=== PATIENT | female | born 1950 | race Caucasian/White ===

== ENCOUNTER 2021-05-21 08:01 | Outpatient (REF) | payer MEDICARE, SELFPAY ==
[2021-05-21 08:45] LABS: Basophils Absolute Auto 0.1 X10*3/uL (0.0-0.2); Basophils Percent Auto 1.2 % (0-2); Eosinophils Absolute Auto 0.1 X10*3/uL (0.0-0.4); Eosinophils Percent Auto 1.8 % (0-4); Hemoglobin 14.9 g/dl (12.0-16.0); Imm Gran Abs Auto 0.03 X10*3/uL (0.00-0.03); Imm Gran Pct Auto 0.4 % (0.0-0.4); Lymphocytes Absolute Auto 1.6 X10*3/uL (1.2-4.9); Lymphocytes Percent Auto 20.4 % (20-40); MANUAL DIFF FLAG SCAN; Mean Corpuscular HGB Conc 32.4 g/dl (31.0-35.0); Mean Corpuscular Hemoglobin 28.3 pg (27.0-33.0); Mean Corpuscular Volume 87.5 fL (80.0-98.0); Mean Platelet Volume 11.7 fL (9.4-12.3); Monocytes Absolute Auto 0.6 X10*3/uL (0.1-1.2); Monocytes Percent Auto 7.2 % (2-11); Neutrophils Absolute Auto 5.3 x10*3/uL (2.0-8.3); PLT CLUMP 1; Red Blood Count 5.26 X10*6/uL (4.20-5.50); SCAN SMEAR FLAG 1
[2021-05-21 09:06] LABS: Alanine Aminotransferase 14 U/L (0-31); Albumin Level 4.1 g/dL (3.5-5.0); Alkaline Phosphatase 76 U/L (39-117); Anion Gap 13 (12-20); Aspartate Amino Transferase 18 U/L (5-31); Bilirubin Total 0.3 mg/dL (0.0-1.0); Blood Urea Nitrogen 16 mg/dL (9-16); Calcium 9.7 mg/dL (8.4-10.2); Carbon Dioxide 30 mmol/L (22-29); Chloride 102 mmol/L (96-108); Cholesterol 251 mg/dL; Estimated Glomerular Filt Rate > 60; Glucose Fasting 109 mg/dL (60-99); HDL Cholesterol 65 mg/dL; LDL Cholesterol Calculated 172 mg/dl; Potassium 4.4 mmol/L (3.3-5.1); Sodium 141 mmol/L (135-145); Triglycerides 73 mg/dL
[2021-05-21 09:13] LABS: Platelet Count 202 X10*3/uL (160-400); White Blood Count 7.6 X10*3/uL (4.8-10.8)
[2021-05-21 09:14] LABS: SLIDE REVIEW VERIFIED
== END 2021-05-21 08:02 | disposition home or self-care (01) ==
LOC: HO.LAB 08:01
PROVIDERS: PCP Nurse Practitioner Family; Visit Provider Nurse Practitioner Family
DX: E78.00 Pure hypercholesterolemia, unspecified (principal); I10 Essential (primary) hypertension
CPT/HCPCS: 36415; 80053; 80061; 85025

== ENCOUNTER 2021-06-10 07:18 | Outpatient (REF) | payer MEDICARE, SELFPAY ==
--- NOTE | ~2021-06-10 | MM_ITS ---
EXAMINATION: MM SCREENING DIGITAL BREAST TOMOSYNTHESIS, BILATERAL CLINICAL INFORMATION: Screening. Asymptomatic. No known family history of breast cancer. The lifetime risk of breast cancer based on the Tyrer-Cuzick Model is 4%. COMPARISON: None. TECHNIQUE: Digital breast tomosynthesis is performed in both the craniocaudal and mediolateral oblique views along with computer-aided detection (CAD). Synthesized 2D images are generated from the tomosynthesis. FINDINGS: There are scattered areas of fibroglandular density (ACR BI-RADS breast composition Category b). There are no significant masses, abnormal calcifications, or other abnormalities. The axilla and skin contours are unremarkable. MM/MM tomosynthesis screening BI IMPRESSION: No mammographic evidence of malignancy. ASSESSMENT: BI-RADS 1: Negative RECOMMENDATION: Routine annual mammography screening. This patient's information was entered into a reminder system with a target due date for their next mammogram.
== END 2021-06-10 07:19 | disposition home or self-care (01) ==
LOC: HO.MAMMO 07:18
PROVIDERS: PCP Nurse Practitioner Family; Visit Provider Nurse Practitioner Family
DX: Z12.31 Encounter for screening mammogram for malignant neoplasm of breast (principal)
CPT/HCPCS: 77063; 77067

== ENCOUNTER 2023-02-17 08:49 | Outpatient (AMB) | payer MEDICARE, SELFPAY ==
[2023-02-17 08:51] VITALS: BP 162/90; PULSE 82; O2SAT 95; BMI 28.5
--- NOTE | 2023-02-17 08:51 | MHC.PC.OV ---
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 Allergies pepper (genus Capsicum) Adverse Reaction (Intermediate, Verified 02/17/23 09:02) Vomiting Medication List - Last Reconciled 02/17/23 by YEFRI Barnes albuterol sulfate 90 mcg/actuation 2 puffs PO Q4H PRN fluticasone propion-salmeterol 500-50 mcg/dose (Wixela Inhub) 1 ea PO BID hydrochlorothiazide 12.5 mg PO DAILY Tobacco use date assessed: 02/17/23 Fall risk assessment: No Falls in past year Last assessed Fall Risk: 02/17/23 Dental Screening Dental Screen Date: 02/17/23 Did you have a dental visit in the last 12 months?: No Did you have a dental problem in the last 6 months where you did not have access to dental care?: No HPI 6 month f/u HPI Details Patient is a 72-year-old female who presents today to follow-up on asthma and hypertension. Patient reports compliance with medications and denies side effects. Reports having cold, has some wheezing. Reports blood pressures usually good at home. No shortness of breath or chest pain. Patient was encouraged to complete her blood work. PFSH Family History Mother HTN (hypertension) Father Lung cancer Sister Lung cancer Social History Household Members Other:: son Housing: House Alcohol intake: never Patient Tobacco Use Status: Former Tobacco user e-Cigarette/Vaping Use: Never Used service: No Current occupational status: retired Current occupational exposures/hazards: No Cognitive needs: No Hearing needs: No Vision needs: No Questionnaire PHQ-9 Over the last 2 weeks, how often have you been bothered by any of the following problems? 1. Little interest or pleasure in doing things: not at all 2. Feeling down, depressed, or hopeless: not at all 3. Trouble falling or staying asleep, or sleeping too much: not at all 4. Feeling tired or having little energy: not at all 5. Poor appetite or overeating: not at all 6. Feeling bad about yourself - or that you are a failure or have let yourself or your family down: not at all 7. Trouble concentrating on things, such as reading the newspaper or watching television: not at all 8. Moving or speaking so slowly that other people could have noticed. Or the opposite - being so fidgety or restless that you have been moving around a lot more than usual: not at all 9. Thoughts that you would be better off or of hurting yourself in some way: not at all Total score: 0 Depression Screening Interpretation: Negative Depression Screening Done: Yes 31426 - PHQ-9 Billing: Yes Source: Developed by Drs. Arthur Woodard, Milagros France, Denis Cook and colleagues, with an educational kamryn from [employer]. Thrive Questionnaire Date Thrive assessed: 07/02/22 AUDIT C Alcohol Use Questionnaire (AUDIT-C) 1. How often do you have a drink containing alcohol?: Never 3. How often do you have six or more drinks on one occasion?: Never Total Score: 0 Score Reviewed/Action Taken: No LIA-7 AMB Questionnaire LIA-7 Date LIA - 7 assessed: 07/02/22 Feeling nervous, anxious, or on edge: 0 = Not at all Not being able to stop or control worryin = Not at all Worrying too much about different things: 0 = Not at all Trouble relaxin = Not at all Being so restless that it is hard to sit still: 0 = Not at all Becoming easily annoyed or irritable: 0 = Not at all Feeling afraid as if something awful might happen: 0 = Not at all Total LIA-7 score (0-4 normal; 5-9 mild; 10-14 moderate; 15-21 severe): 0 Source: Developed by Drs. Arthur Woodard, Milagros France, Denis Cook and colleagues, with an educational kamryn from [employer]. LIA-7 Assessment Billing LIA-7 Assessment Tool: LIA-7 Assessment 53376 Review of Systems Const Denies body aches, Denies chills, Denies fever(s) and Denies headache(s) Eyes Denies change in vision ENT Denies dizziness, Denies otalgia, Denies headache(s), Denies nasal discharge, Denies sinus pain and Denies sore throat Card Denies chest pain, Denies edema, Denies lightheadedness and Denies dyspnea Resp Denies cough, Denies dyspnea and Reports wheezing GI Denies abdominal pain, Denies constipation, Denies diarrhea, Denies nausea and Denies vomiting Denies dysuria Musc Denies myalgias Skin/Breast Denies rash Neuro Denies dizziness and Denies headache(s) Aller/Immun Reports wheezing Physical exam (Primary Care) Vital Signs: Last Vital Signs Pulse 82 02/17/23 08:51 BP 162/90 H 02/17/23 08:51 Pulse Ox 95 02/17/23 08:51 Oxygen Delivery Method Room Air 02/17/23 08:51 BMI result Body Mass Index 28.5 Tobacco/Smoking Status: Tobacco use Status Tobacco use date assessed 02/17/23 02/17/23 08:55 Patient Tobacco Use Status Former Tobacco user 02/17/23 08:55 e-Cigarette/Vaping Use Never Used 02/17/23 08:55 PHQ-9: PHQ-9 Score PHQ-9: Total score 0 02/17/23 08:55 Depression Screening Interpretation: Negative Thrive Assessment: Date of Thrive Assessment Date Thrive assessed 07/02/22 02/17/23 08:55 Const General: cooperative and no acute distress Orientation/consciousness: patient oriented x3 [facility] Head: Yes normocephalic and Yes atraumatic Face and sinus: Yes sinuses nontender Mouth: oropharynx normal and moist mucous membranes Throat: Yes posterior oropharynx normal Eyes General: appearance normal, both eyes and all related structures Neck Neck: Yes normal visual inspection, Yes full ROM and Yes no lymphadenopathy Resp Effort & Inspection: normal respiratory effort and able to speak in complete sentences Auscultation: clear to auscultation bilaterally (Bilateral upper lungs), no crackles, no rales, no rhonchi and wheezes (Bilateral lower lungs) Cardio Rate: regular rate Rhythm: regular rhythm Heart sounds: S1 normal heart sound present, S2 normal heart sound present and no murmurs GI Auscultation: normal bowel sounds Skin General skin exam: no rashes or lesions noted Neuro General: patient oriented x3 Gait exam (Neuro): Normal gait present Extrem General: Yes full ROM and No edema Assessment and Plan Assessment & Plan (1) Essential (primary) hypertension: Code(s): I10 - Essential (primary) hypertension Plan: Goal BP equal or less than 140/90 Blood pressure elevated in the office today Increase hydrochlorothiazide to 25 mg daily Low-sodium diet Continue to monitor blood pressures at home Signs and symptoms reviewed when to notify provider or go to the emergency department (2) Asthma: Code(s): J45.909 - Unspecified asthma, uncomplicated Plan: Continue current inhalers as prescribed Start prednisone daily for 5 days Signs and symptoms reviewed when to notify provider or go to the emergency department Medications: New hydrochlorothiazide 25 mg PO DAILY 90 tabs 1RF I10 - Essential (primary) hypertension prednisone 40 mg (2 x 20 mg) PO DAILY 5 days 10 tabs 0RF J45.909 - Unspecified asthma, uncomplicated Discontinued hydrochlorothiazide Discontinued Reason: Doctor's Order 12.5 mg PO DAILY 30 tabs 3RF Coding Level of Care Code Est Pt Level 4 (93679) Diagnoses Essential (primary) hypertension I10 Asthma J45.909 Additional Codes LIA-7 Assessment Billing - LIA-7 Assessment Tool: LIA-7 Assessment 41137 ([id number])
[2023-02-17 09:08] VITALS: BP 162/86
== END 2023-02-17 09:12 | disposition home or self-care (01) ==
PROVIDERS: PCP Nurse Practitioner Family; Visit Provider Nurse Practitioner Family
DX: I10 Essential (primary) hypertension (principal); J45.909 Unspecified asthma, uncomplicated
CPT/HCPCS: 99214

== ENCOUNTER 2023-11-15 09:20 | Outpatient (AMB) | payer MEDICARE, SELFPAY ==
[2023-11-15 09:22] VITALS: BP 156/74; PULSE 66; O2SAT 98; BMI 29.3
--- NOTE | 2023-11-15 09:22 | A.OFFPC_ITS ---
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 Allergies pepper (genus Capsicum) Adverse Reaction (Intermediate, Verified 11/15/23 09:33) Vomiting Medication List - Last Reconciled 11/15/23 by Josh Cortez MD albuterol sulfate 90 mcg/actuation 2 puffs PO Q4H PRN fluticasone propion-salmeterol 500-50 mcg/dose (Wixela Inhub) 1 ea PO BID hydrochlorothiazide 25 mg PO DAILY Tobacco use date assessed: 11/15/23 Fall risk assessment: No Falls in past year Last assessed Fall Risk: 11/15/23 Dental Screening Dental Screen Date: 11/15/23 Did you have a dental visit in the last 12 months?: No Did you have a dental problem in the last 6 months where you did not have access to dental care?: No Was dental information given to patient?: Patient has dentist HPI F/U on HTN, asthma HPI Details Patient comes in today for her follow up visit - this is the first time I am seeing patient as she used to follow up with our nurse practitioner, Neyda Kirk, who is no longer with the practice Patient states that she feels okay except for a lesion beside her left elbow that she first noticed a couple of days ago States that the lesion has gotten bigger since and now feels slightly sore - thinks that it may have started out as as insect bite She denies any headaches or dizziness; denies any fever Denies any chest pains, no increased SOB - states that she normally uses her Wixela inhaler BID and does not have to use her Albuterol inhaler regularly, at most once every few days No nausea/vomiting, no abdominal pain No change in bowel habits noted PFSH Medical History (Updated 11/15/23 @ 10:01 by Josh Cortez MD) Overweight (BMI 25.0-29.9) Impaired fasting glucose Pure hypercholesterolemia Asthma Essential (primary) hypertension Surgical History (Updated 11/15/23 @ 09:38 by Josh Cortez MD) No pertinent past surgical history Family History Mother HTN (hypertension) Father Lung cancer Sister Lung cancer Social History Household Members Other:: son Housing: House Alcohol intake: never Patient Tobacco Use Status: Former Tobacco user e-Cigarette/Vaping Use: Never Used service: No Current occupational status: retired Current occupational exposures/hazards: No Cognitive needs: No Hearing needs: No Vision needs: No Questionnaire PHQ-9 Over the last 2 weeks, how often have you been bothered by any of the following problems? 1. Little interest or pleasure in doing things: not at all 2. Feeling down, depressed, or hopeless: not at all 3. Trouble falling or staying asleep, or sleeping too much: not at all 4. Feeling tired or having little energy: not at all 5. Poor appetite or overeating: not at all 6. Feeling bad about yourself - or that you are a failure or have let yourself or your family down: not at all 7. Trouble concentrating on things, such as reading the newspaper or watching television: not at all 8. Moving or speaking so slowly that other people could have noticed. Or the opposite - being so fidgety or restless that you have been moving around a lot more than usual: not at all 9. Thoughts that you would be better off or of hurting yourself in some way: not at all Total score: 0 Depression Screening Interpretation: Negative Depression Screening Done: Yes 24749 - PHQ-9 Billing: Yes Source: Developed by Drs. Arthur Woodard, Milagros France, Denis Cook and colleagues, with an educational kamryn from [employer]. Thrive Questionnaire Date Thrive assessed: 11/15/23 I am a: Patient What is your living situation today?: I have a steady place to live Within the past 12 months, did the food you bought not last and you didn't have the money to get more?: Never true Within the past 12 months, did you worry whether your food would run out before you got money to buy more?: Never true Do you have trouble paying for medicines?: No Do you have trouble getting transportation to medical appointments?: No Do you have trouble paying your heating and electricity bill?: No Do you have trouble taking care of your child, family member or friend?: No Do you have trouble with day-to-day activities such as bathing, preparing meals, shopping, managing finances, etc.?: No Are you currently unemployed and looking for a job?: No Are you interested in more education?: No Please select the resources that you would like help with: None Currently or been in a relationship where the following occur: No concerns reported THRIVE Score: 0 AUDIT C Alcohol Use Questionnaire (AUDIT-C) 1. How often do you have a drink containing alcohol?: Never 3. How often do you have six or more drinks on one occasion?: Never Total Score: 0 Score Reviewed/Action Taken: Yes LIA-7 AMB Questionnaire LIA-7 Date LIA - 7 assessed: 11/15/23 Feeling nervous, anxious, or on edge: 0 = Not at all Not being able to stop or control worryin = Not at all Worrying too much about different things: 0 = Not at all Trouble relaxin = Not at all Being so restless that it is hard to sit still: 0 = Not at all Becoming easily annoyed or irritable: 0 = Not at all Feeling afraid as if something awful might happen: 0 = Not at all Total LIA-7 score (0-4 normal; 5-9 mild; 10-14 moderate; 15-21 severe): 0 Source: Developed by Drs. Arthur Woodard, Milagros France, Denis Cook and colleagues, with an educational kamryn from [employer]. LIA-7 Assessment Billing LIA-7 Assessment Tool: LIA-7 Assessment 14708 Review of Systems Const Denies chills, Denies fatigue, Denies fever(s) and Denies headache(s) ENT Denies dysphagia, Denies dizziness, Denies otalgia, Denies headache(s), Denies neck pain, Denies odynophagia and Denies sore throat Card Denies chest pain, Denies palpitations and Reports dyspnea on exertion (mild) Resp Denies chest congestion, Reports cough (on and off), Reports dyspnea on exertion (mild) and Denies wheezing GI Denies abdominal pain, Denies constipation, Denies dysphagia, Denies heartburn, Denies diarrhea, Denies nausea, Denies odynophagia and Denies vomiting Denies difficulty voiding, Denies nocturia, Denies dysuria and Denies urinary urgency Musc Denies back pain and Denies neck pain Skin/Breast Details: (+) slightly swollen and reddish bump on the left forearm just beside the elbow joint Denies rash Neuro Denies dizziness and Denies headache(s) Endo Denies fatigue and Denies palpitations Aller/Immun Denies wheezing Physical exam (Primary Care) Vital Signs: Last Vital Signs Pulse 66 11/15/23 09:22 BP 156/74 H 11/15/23 09:22 Pulse Ox 98 11/15/23 09:22 Oxygen Delivery Method Room Air 11/15/23 09:22 BMI result Body Mass Index 29.3 Tobacco/Smoking Status: Tobacco use Status Tobacco use date assessed 11/15/23 11/15/23 09:28 Patient Tobacco Use Status Former Tobacco user 11/15/23 09:28 e-Cigarette/Vaping Use Never Used 11/15/23 09:28 PHQ-9: PHQ-9 Score PHQ-9: Total score 0 11/15/23 09:28 Depression Screening Interpretation: Negative Thrive Assessment: Date of Thrive Assessment Date Thrive assessed 11/15/23 11/15/23 09:28 Currently or been in a relationship where the following occur: No concerns reported Const General: no acute distress and alert HENMT Ears: TM's normal bilaterally and EAC's normal Throat: Yes posterior oropharynx normal and Yes tonsils normal (no TP congestion) Neck Neck: Yes no lymphadenopathy and Yes supple Thyroid: Thyroid normal Resp Auscultation: no rales, rhonchi (occasional) throughout, no wheezes and diminished lung sounds (slightly) bilateral Cardio Rate: regular rate Rhythm: regular rhythm Heart sounds: no murmurs GI Palpation (GI): Soft to palpation and nontender Auscultation: normal bowel sounds General: Yes no CVA tenderness Back/Spine/Pelvis Back: no CVA tenderness Thoracic/Lumbar Spine: No lumbar spinal tenderness Skin Other: (+) slightly tender, erythematous, raised lesion (bump) on the proximal lateral left forearm adjacent to the lateral epicondyle Rashes: no rashes Extrem General: Yes no clubbing, cyanosis or edema Assessment and Plan Assessment & Plan (1) Essential (primary) hypertension: Code(s): I10 - Essential (primary) hypertension Plan: Reinforced low sodium diet - goal is systolic BP of at least 130 to 140 mm Continue HCTZ 25 mg Q AM for now Will send patient to the labs [facility] for further evaluation - will at least see how her renal function is before deciding on what else to do about her elevated BP at this time (2) Asthma: Code(s): J45.909 - Unspecified asthma, uncomplicated Qualifiers: Asthma severity: moderate Asthma persistence: persistent Asthma complication type: uncomplicated Qualified Code(s): J45.40 - Moderate persistent asthma, uncomplicated Plan: Continue Wixela Inhub 500-50 mcg 1 inhalation BID and Albuterol HFA 1 to 2 inhalations Q 4 to 6 hours PRN Patient is advised to reach out [facility] if she starts experiencing increasing SOB or requires having to use her rescue inhaler on a daily or regular basis (3) Pure hypercholesterolemia: Code(s): E78.00 - Pure hypercholesterolemia, unspecified Plan: Reinforced low cholesterol diet Her cholesterol levels, especially her total and LDL cholesterols, were elevated when they were last checked a couple of years ago (2021) Will have patient recheck her fasting lipids for follow up (4) Impaired fasting glucose: Code(s): R73.01 - Impaired fasting glucose Plan: Her FBS was also slightly higher than normal on her labs when they were last checked in 2021 Reinforced low calorie/low carb diet Will recheck her FBS and also check her HgbA1c for further evaluation/follow up (5) Cellulitis of left elbow: Code(s): L03.114 - Cellulitis of left upper limb Plan: Discussed that this is likely brought about by an insect bite as patient surmised Will start her on oral Doxycycline 100 mg BID x 7 days Advised that she can also apply some warm compress to the swelling over her left elbow area PRN for symptomatic relief (6) Overweight (BMI 25.0-29.9): Code(s): E66.3 - Overweight Plan: Reinforced diet; exercise and weight loss are likely unrealistic given patient's situation and comorbidities Plan Follow up in 4 months Orders: Orders Comprehensive Norphlet. Panel Fast Today E78.00 - Pure hypercholesterolemia, unspecified TSH reflex Free T4 Today E78.00 - Pure hypercholesterolemia, unspecified UA CC w/rflx Micro + Cult Today R30.0 - Dysuria Microalbumin, Random (w Creat) Today E11.9 - Type 2 diabetes mellitus without complications Vitamin D 25-OH Total Today E55.9 - Vitamin D deficiency, unspecified Complete Blood Count Auto Diff Today D64.9 - Anemia, unspecified, I10 - Essential (primary) hypertension Lipid Panel Today E78.00 - Pure hypercholesterolemia, unspecified Hemoglobin A1c Today E11.9 - Type 2 diabetes mellitus without complications Medications: New doxycycline hyclate 100 mg PO BID 7 days 14 caps 0RF Changed From fluticasone propion-salmeterol 500-50 mcg/dose (Wixela Inhub) 1 ea PO BID 60 ea 1RF To fluticasone propion-salmeterol 500-50 mcg/dose (Wixela Inhub) 1 inh PO BID 60 ea 1RF Coding Level of Care Code Est Pt Level 4 (65567) Diagnoses Essential (primary) hypertension I10 Moderate persistent asthma without complication J45.40 Asthma severity: moderate Asthma persistence: persistent Asthma complication type: uncomplicated Pure hypercholesterolemia E78.00 Impaired fasting glucose R73.01 Cellulitis of left elbow L03.114 Overweight (BMI 25.0-29.9) E66.3 Additional Codes LIA-7 Assessment Billing - LIA-7 Assessment Tool: LIA-7 Assessment [id number] ([id number])
[2023-11-15 09:52] VITALS: BP 160/70
== END 2023-11-15 09:51 | disposition home or self-care (01) ==
PROVIDERS: PCP Internal Medicine; Visit Provider Internal Medicine
DX: I10 Essential (primary) hypertension (principal); J45.40 Moderate persistent asthma, uncomplicated; E78.00 Pure hypercholesterolemia, unspecified; R73.01 Impaired fasting glucose; L03.114 Cellulitis of left upper limb; E66.3 Overweight
CPT/HCPCS: 99214

== ENCOUNTER 2024-11-16 15:15 | Outpatient (AMB) | payer MEDICARE, SELFPAY ==
--- NOTE | 2024-11-16 15:19 | MHC.PC.OV ---
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 Accompanied by: Self / Same As Patient Allergies pepper (genus Capsicum) Adverse Reaction (Intermediate, Verified 11/16/24 15:41) Vomiting Medication List - Last Reconciled 11/16/24 by Josh Cortez MD albuterol sulfate 90 mcg/actuation 2 puffs PO Q4H PRN fluticasone propion-salmeterol 500-50 mcg/dose (Wixela Inhub) 1 inh PO BID hydrochlorothiazide 25 mg PO DAILY Tobacco use date assessed: 11/16/24 Fall risk assessment: No Falls in past year Last assessed Fall Risk: 11/16/24 Dental Screening Dental Screen Date: 11/16/24 Did you have a dental visit in the last 12 months?: No Did you have a dental problem in the last 6 months where you did not have access to dental care?: No Was dental information given to patient?: Patient has dentist HPI HTN, asthma, hyperlipidemia HPI Details Patient comes in today for her follow-up visit - she was last seen over a year ago in [id number] Patient states that currently she feels okay and that her blood pressure again normally runs much lower when she is at home compared to her blood pressure readings here - states that her home systolic BP readings are usually in the 130 mm range She denies any headaches or dizziness Denies any chest pains but reports that she came down with a cold a few days ago and has been experiencing some chest congestion and on and off chest tightness/asthma flare up for the past few days Feels that her symptoms are starting to clear up and her asthma symptoms are slightly improving - she has been using her inhalers as instructed and they are helping She denies any fever or sore throat and she does not feel SOB at present No nausea/vomiting, no abdominal pain No change in bowel habits noted PFSH Medical History Overweight (BMI 25.0-29.9) Impaired fasting glucose Pure hypercholesterolemia Asthma Essential (primary) hypertension Surgical History No pertinent past surgical history Family History Mother HTN (hypertension) Father Lung cancer Sister Lung cancer Social History Household Members Other:: son Housing: House Alcohol intake: never Patient Tobacco Use Status: Former Tobacco user e-Cigarette/Vaping Use: Never Used service: No Current occupational status: retired Current occupational exposures/hazards: No Cognitive needs: No Hearing needs: No Vision needs: No Questionnaire PHQ-9 Over the last 2 weeks, how often have you been bothered by any of the following problems? 1. Little interest or pleasure in doing things: not at all 2. Feeling down, depressed, or hopeless: not at all 3. Trouble falling or staying asleep, or sleeping too much: not at all 4. Feeling tired or having little energy: not at all 5. Poor appetite or overeating: not at all 6. Feeling bad about yourself - or that you are a failure or have let yourself or your family down: not at all 7. Trouble concentrating on things, such as reading the newspaper or watching television: not at all 8. Moving or speaking so slowly that other people could have noticed. Or the opposite - being so fidgety or restless that you have been moving around a lot more than usual: not at all 9. Thoughts that you would be better off or of hurting yourself in some way: not at all Total score: 0 Depression Screening Interpretation: Negative Depression Screening Done: Yes [id number] - PHQ-9 Billing: Yes Source: Developed by Drs. Arthur Woodard, Milagros France, Denis Cook and colleagues, with an educational kamryn from [employer]. Thrive Questionnaire Date Thrive assessed: 11/13/24 I am a: Patient What is your living situation today?: I have a steady place to live Within the past 12 months, did the food you bought not last and you didn't have the money to get more?: Never true Within the past 12 months, did you worry whether your food would run out before you got money to buy more?: Never true Do you have trouble paying for medicines?: No Do you have trouble getting transportation to medical appointments?: No Do you have trouble paying your heating and electricity bill?: No Do you have trouble taking care of your child, family member or friend?: No Do you have trouble with day-to-day activities such as bathing, preparing meals, shopping, managing finances, etc.?: No Are you currently unemployed and looking for a job?: No Are you interested in more education?: No Please select the resources that you would like help with: None Currently or been in a relationship where the following occur: No concerns reported THRIVE Score: 0 AUDIT C Alcohol Use Questionnaire (AUDIT-C) 1. How often do you have a drink containing alcohol?: Never 2. How many drinks containing alcohol do you have on a typical day when you are drinking?: 1 or 2 3. How often do you have six or more drinks on one occasion?: Never Total Score: 0 Score Reviewed/Action Taken: Yes LIA-7 AMB Questionnaire LIA-7 Date LIA - 7 assessed: 11/16/24 Feeling nervous, anxious, or on edge: 0 = Not at all Not being able to stop or control worryin = Not at all Worrying too much about different things: 0 = Not at all Trouble relaxin = Not at all Being so restless that it is hard to sit still: 0 = Not at all Becoming easily annoyed or irritable: 0 = Not at all Feeling afraid as if something awful might happen: 0 = Not at all Total LIA-7 score (0-4 normal; 5-9 mild; 10-14 moderate; 15-21 severe): 0 Source: Developed by Drs. Arthur Woodard, Milagros France, Denis Cook and colleagues, with an educational kamryn from [employer]. Review of Systems Const Denies chills, Denies fatigue, Denies fever(s) and Denies headache(s) ENT Denies dysphagia, Denies dizziness, Denies otalgia, Denies headache(s), Denies neck pain, Denies odynophagia and Denies sore throat Card Denies chest pain, Denies palpitations and Reports dyspnea on exertion (mild) Resp Reports chest congestion (on and off for the past few days - see HPI), Reports cough (on and off), Reports dyspnea on exertion (mild) and Denies wheezing GI Denies abdominal pain, Denies constipation, Denies dysphagia, Denies heartburn, Denies diarrhea, Denies nausea, Denies odynophagia and Denies vomiting Denies difficulty voiding, Denies nocturia, Denies dysuria and Denies urinary urgency Musc Denies back pain and Denies neck pain Skin/Breast Denies rash Neuro Denies dizziness and Denies headache(s) Endo Denies fatigue and Denies palpitations Aller/Immun Denies wheezing Physical exam (Primary Care) Vital Signs: Last Vital Signs Temp 97.1 F 11/16/24 15:21 Pulse 101 H 11/16/24 15:21 BP 160/72 H 11/16/24 15:21 Pulse Ox 96 11/16/24 15:21 Oxygen Delivery Method Room Air 11/16/24 15:21 BMI result Body Mass Index 28.9 Tobacco/Smoking Status: Tobacco use Status Tobacco use date assessed 11/16/24 11/16/24 15:28 Patient Tobacco Use Status Former Tobacco user 11/16/24 15:20 e-Cigarette/Vaping Use Never Used 11/16/24 15:20 PHQ-9: PHQ-9 Score PHQ-9: Total score 0 11/16/24 15:46 Depression Screening Interpretation: Negative Thrive Assessment: Date of Thrive Assessment Date Thrive assessed 11/13/24 11/16/24 15:20 Currently or been in a relationship where the following occur: No concerns reported Const General: no acute distress and alert HENMT Ears: TM's normal bilaterally and EAC's normal Throat: Yes posterior oropharynx normal and Yes tonsils normal (no TP congestion) Neck Neck: Yes no lymphadenopathy and Yes supple Thyroid: Thyroid normal Resp Auscultation: no rales, rhonchi (occasional), no wheezes and diminished lung sounds (slightly) bilateral Cardio Rate: regular rate Rhythm: regular rhythm Heart sounds: no murmurs GI Palpation (GI): Soft to palpation and nontender Auscultation: normal bowel sounds General: Yes no CVA tenderness Back/Spine/Pelvis Back: no CVA tenderness Thoracic/Lumbar Spine: No lumbar spinal tenderness Skin Rashes: no rashes Extrem General: Yes no clubbing, cyanosis or edema Coding Level of Care Code Est Pt Level 4 (41869) Diagnoses Essential (primary) hypertension I10 Pure hypercholesterolemia E78.00 Moderate persistent asthma without complication J45.40 Asthma severity: moderate Asthma persistence: persistent Asthma complication type: uncomplicated Impaired fasting glucose R73.01 Overweight (BMI 25.0-29.9) E66.3 Additional Codes PHQ-9 - 91448 - PHQ-9 Billing: Yes ([id number]) Assessment & Plan Assessment & Plan (1) Essential (primary) hypertension: Code(s): I10 - Essential (primary) hypertension Category: Medical Plan: Reinforced low sodium diet - goal is systolic BP of at least 130 to 140 mm or less Patient's blood pressure readings have been reportedly much lower when she is not in the office for her appointments, with her systolic BP readings most often in the 130 mm range, so she likely has some component of white coat syndrome Continue HCTZ 25 mg Q AM for now Patient is instructed to continue monitoring her blood pressure regularly (2) Pure hypercholesterolemia: Code(s): E78.00 - Pure hypercholesterolemia, unspecified Category: Medical Plan: Her cholesterol levels were elevated when they were last checked in April 2021, with her total cholesterol at 251 mg/dl and LDL cholesterol at 172 mg/dl Reinforced low cholesterol diet Will have her recheck her labs and fasting lipids ARTI for follow up as she has not had any labs done in over 3 years now; she did not get the labs that were ordered last year done as well (3) Asthma: Code(s): J45.909 - Unspecified asthma, uncomplicated Category: Medical Qualifiers: Asthma severity: moderate Asthma persistence: persistent Asthma complication type: uncomplicated Qualified Code(s): J45.40 - Moderate persistent asthma, uncomplicated Plan: She appears to be experiencing some mild asthma flare up symptoms at present although she reports that she is starting to feel better now since she came down with a cold a few days ago Have advised her to call for further instructions and Rx if she feels that her symptoms are starting to get worse or progress over the next few days Continue Wixela Inhub 500-50 mcg 1 inhalation BID and Albuterol HFA 1 to 2 inhalations every 6 hours PRN (4) Impaired fasting glucose: Code(s): R73.01 - Impaired fasting glucose Category: Medical Plan: Her fasting glucose level was slightly elevated at 109 mg/dl when she last had her labs done back in April 2021 WIll recheck her FBS and also check her HgbA1c for further evaluation (5) Overweight (BMI 25.0-29.9): Code(s): E66.3 - Overweight Category: Medical Plan: Reinforced diet/exercise as tolerated/lose weight Plan Follow up in 6 months Orders: Orders Comprehensive [place]. Panel Fast 11/16/24 E78.00 - Pure hypercholesterolemia, unspecified Complete Blood Count Auto Diff 11/16/24 D64.9 - Anemia, unspecified Lipid Panel 11/16/24 E78.00 - Pure hypercholesterolemia, unspecified TSH reflex Free T4 11/16/24 E78.00 - Pure hypercholesterolemia, unspecified UA CC w/rflx Micro + Cult 11/16/24 R30.0 - Dysuria Vitamin D 25-OH Total 11/16/24 E55.9 - Vitamin D deficiency, unspecified Hemoglobin A1c 11/16/24 R73.01 - Impaired fasting glucose
[2024-11-16 15:21] VITALS: BP 160/72; PULSE 101; TEMP 36.2; O2SAT 96; BMI 28.9
== END 2024-11-16 15:51 | disposition home or self-care (01) ==
LOC: HO.HMCH 15:15
PROVIDERS: PCP Internal Medicine; Visit Provider Internal Medicine
DX: I10 Essential (primary) hypertension (principal); E78.00 Pure hypercholesterolemia, unspecified; J45.40 Moderate persistent asthma, uncomplicated; R73.01 Impaired fasting glucose; E66.3 Overweight

== ENCOUNTER → 2024-11-16 15:15 | Outpatient (BNVA) | payer MEDICARE, SELFPAY | PROVIDERS: PCP Internal Medicine; Visit Provider Internal Medicine | DX: I10 Essential (primary) hypertension (principal); J45.909 Unspecified asthma, uncomplicated; E78.00 Pure hypercholesterolemia, unspecified; J45.40 Moderate persistent asthma, uncomplicated; R73.01 Impaired fasting glucose; E66.3 Overweight; R30.0 Dysuria; Z68.28 Body mass index [BMI] 28.0-28.9, adult | CPT/HCPCS: 96127; 99212 ==